=== PATIENT | female | born 1965 | race Caucasian/White ===

== ENCOUNTER 2019-01-08 21:41 | Inpatient (IN) | payer MEDICARE, MEDICAID ==
[~2019-01-08] VITALS: Ht 167.6 cm; Wt 97.7 kg
[2019-01-08] MEDS ORDERED: SPIR25 PO (22:00)
[2019-01-08] MEDS ORDERED: OXYC20 PO (22:00)
[2019-01-08] MEDS ORDERED: ESTR-95 PO (22:01)
[2019-01-08] MEDS ORDERED: DIAZ10 PO (22:01)
[2019-01-08] MEDS ORDERED: OXYB5 PO (22:01)
[2019-01-08] MEDS ORDERED: DIAZ5 PO (22:01)
[2019-01-08 22:30] LABS: GLUCOSE,POINT OF CARE 101 MG/DL (70-110)
[2019-01-08 22:56] LABS: BASOPHILS % (AUTO) 0.4 % (0.0-2.0); EOSINOPHILS % (AUTO) 1.9 % (1.0-6.0); HEMATOCRIT 39.9 % (41-53); HEMOGLOBIN 13.1 g/dL (13.5-17.5); LYMPHOCYTES # (AUTO) 1.4 K/uL (1.0-4.8); LYMPHOCYTES % (AUTO) 17.8 % (22.0-44.0); MEAN CORPUSCULAR HEMOGLOBIN 32.5 pg (26.0-34.0); MEAN CORPUSCULAR HGB CONC 32.9 G/dL (31.0-37.0); MEAN CORPUSCULAR VOLUME 99 fL (80-100); MONOCYTES # (AUTO) 0.4 K/uL (0.1-1.0); MONOCYTES % (AUTO) 5.5 % (2.0-9.0); NEUTROPHILS # (AUTO) 5.9 K/uL (1.8-7.7); NEUTROPHILS % (AUTO) 74.4 % (40.0-70.0); PLATELET COUNT (AUTO) 345 K/uL (150-450); RED BLOOD CELL COUNT(AUTO) 4.03 MIL/uL (4.50-5.90); RED CELL DISTRIBUTION WIDTH 14.7 % (11.5-14.5)
[2019-01-08 23:03] LABS: ANION GAP 9 mmol/L (8-16); CALCIUM, TOTAL 9.1 mg/dL (8.8-10.5); CARBON DIOXIDE 26 mmol/L (22-29); CHLORIDE 105 mmol/L (98-107); GLOMERULAR FILTR. RATE CALC > 60 mL/min (>60); GLUCOSE,RANDOM 101 mg/dL (70-110); POTASSIUM 3.4 mmol/L (3.5-5.1); SODIUM SERUM 140 mmol/L (136-145); UREA NITROGEN, BLOOD 9 mg/dL (7-18)
[2019-01-08 23:09] LABS: ALANINE AMINOTRANSFERASE 18 U/L (12-78); ALBUMIN 3.7 g/dL (3.4-5.0); ALKALINE PHOSPHATASE 55 U/L (46-116); ASPARTATE AMINOTRANSFERASE 14 U/L (15-37); BILIRUBIN,TOTAL 0.4 mg/dL (0.1-1.0); TOTAL PROTEIN, SERUM 6.8 g/dL (6.4-8.2)
[2019-01-08 23:27] LABS: ACETAMINOPHEN < 2 mcg/mL (10-30); SALICYLATE 3.3 mg/dL (2.8-20.0)
[2019-01-09] MEDS ORDERED: OxyCODONE HCL 10 MG IR TABLET PO ONE (00:15)
[2019-01-09] MEDS ORDERED: LORazepam 1 MG TABLET PO ONE (01:45)
[2019-01-09] MEDS ORDERED: DIAZEPAM 5 MG TABLET PO ONE (01:45)
[2019-01-09] MEDS ORDERED: LORazepam 2 MG/ML VIAL IM ONE ×2 (05:30→11:45)
[2019-01-09] MEDS ORDERED: HALOPERIDOL 5 MG TABLET PO PRN (09:30)
[2019-01-09] MEDS ORDERED: ZOLPIDEM TARTRATE 10 MG TABLET PO PRN (09:30)
[2019-01-09 11:56] VITALS: BP 125/90
[2019-01-09] MEDS: ESCITALOPRAM OXALATE 10 MG TABLET PO SCH (12:20)
[2019-01-09] MEDS: ESTRADIOL 1 MG TABLET PO SCH (14:59)
[2019-01-09] MEDS: SPIRONOLACTONE 25 MG TABLET PO SCH (14:59)
[2019-01-09] MEDS: OXYBUTYNIN CHLORIDE 5 MG TABLET PO SCH ×2 (14:59→17:09)
[2019-01-09] MEDS ORDERED: OXYBUTYNIN CHLORIDE 5 MG TABLET PO SCH (17:00)
[2019-01-09 21:35] VITALS: BP 118/76
[2019-01-09] MEDS ORDERED: ALBUTEROL SULFATE HFA 90 MCG/PUFF 8 GM INHALER IH PRN (22:15)
[2019-01-09] MEDS ORDERED: LOPERAMIDE HCL 2 MG CAPSULE PO PRN (22:15)
[2019-01-09] MEDS ORDERED: ONDANSETRON HCL 4 MG TABLET PO PRN (22:15)
[2019-01-09] MEDS ORDERED: MAG HYDROX/AL HYDROX/SIMETH ES 30 ML SUSPENSION UDCUP PO PRN (22:15)
[2019-01-09] MEDS ORDERED: PETROLATUM,WHITE 28 GM JELLY TP PRN (22:15)
[2019-01-09] MEDS ORDERED: MAGNESIUM HYDROXIDE SUSPENSION 30 ML UDCUP PO PRN (22:15)
[2019-01-09] MEDS ORDERED: DOCUSATE SODIUM 100 MG CAPSULE PO PRN (22:15)
[2019-01-09] MEDS ORDERED: GuaiFENesin/D-METHORPHAN [SUGAR-FREE] 200-20MG/10 ML SYRUP UDCUP PO PRN (22:15)
[2019-01-09] MEDS ORDERED: IBUPROFEN 400 MG TABLET PO PRN (22:15)
[2019-01-09] MEDS ORDERED: CloNIDine HCL 0.1 MG TABLET PO PRN (22:15)
[2019-01-09] MEDS ORDERED: NICOTINE 14 MG/24 HOUR PATCH TD PRN (22:15)
[2019-01-10] MEDS: LORazepam 2 MG TABLET PO PRN ×4 (00:47→18:06)
[2019-01-10] MEDS ORDERED: POTASSIUM CHLORIDE 20 MEQ ER TABLET PO ONE (06:30)
[2019-01-10] MEDS: ESCITALOPRAM OXALATE 10 MG TABLET PO SCH (08:55)
[2019-01-10] MEDS: ESTRADIOL 1 MG TABLET PO SCH (08:55)
[2019-01-10] MEDS: SPIRONOLACTONE 25 MG TABLET PO SCH (08:55)
[2019-01-10] MEDS: OXYBUTYNIN CHLORIDE 5 MG TABLET PO SCH ×2 (08:55→17:04)
[2019-01-10] MEDS ORDERED: OxyCODONE HCL 10 MG ER TABLET PO SCH (09:00)
[2019-01-10] MEDS ORDERED: SPIRONOLACTONE 25 MG TABLET PO SCH (09:00)
[2019-01-10] MEDS ORDERED: ESTRADIOL 1 MG TABLET PO SCH (09:00)
[2019-01-10] MEDS ORDERED: ESTRADIOL 1 MG TABLET PO ONE (09:45)
[2019-01-10] MEDS ORDERED: OxyCODONE HCL 10 MG ER TABLET PO ONE (17:00)
[2019-01-10] MEDS: NICOTINE 21 MG/24 HOUR PATCH TD SCH (17:04)
[2019-01-11 02:45] VITALS: BP 122/69
[2019-01-11] MEDS: SPIRONOLACTONE 25 MG TABLET PO SCH (09:54)
[2019-01-11] MEDS: ESTRADIOL 1 MG TABLET PO SCH (09:54)
[2019-01-11] MEDS: OXYBUTYNIN CHLORIDE 5 MG TABLET PO SCH ×2 (09:55→16:25)
[2019-01-11] MEDS: OxyCODONE HCL 10 MG ER TABLET PO SCH ×2 (09:56→16:24)
[2019-01-11] MEDS: ESCITALOPRAM OXALATE 10 MG TABLET PO SCH (09:57)
[2019-01-11] MEDS: NICOTINE 21 MG/24 HOUR PATCH TD SCH (09:58)
[2019-01-11] MEDS: LORazepam 2 MG TABLET PO PRN ×3 (13:39→20:01)
[2019-01-11] MEDS ORDERED: LORazepam 2 MG/ML VIAL IM ONE (16:00)
[2019-01-11 17:00] VITALS: BP 130/84
[2019-01-12] MEDS: LORazepam 2 MG TABLET PO PRN ×4 (01:37→23:02)
[2019-01-12 05:59] VITALS: BP 135/99
[2019-01-12] MEDS: ESTRADIOL 1 MG TABLET PO SCH (09:02)
[2019-01-12] MEDS: OxyCODONE HCL 10 MG ER TABLET PO SCH ×2 (09:02→16:39)
[2019-01-12] MEDS: SPIRONOLACTONE 25 MG TABLET PO SCH (09:04)
[2019-01-12] MEDS: OXYBUTYNIN CHLORIDE 5 MG TABLET PO SCH ×2 (09:05→16:38)
[2019-01-12] MEDS: ESCITALOPRAM OXALATE 10 MG TABLET PO SCH (09:05)
[2019-01-12] MEDS: NICOTINE 21 MG/24 HOUR PATCH TD SCH (09:06)
[2019-01-12] MEDS ORDERED: LORazepam 2 MG/ML VIAL IM ONE (14:55)
[2019-01-13] MEDS: LORazepam 2 MG TABLET PO PRN ×3 (07:46→19:24)
[2019-01-13] MEDS: OxyCODONE HCL 10 MG ER TABLET PO SCH ×2 (08:14→17:30)
[2019-01-13] MEDS: OXYBUTYNIN CHLORIDE 5 MG TABLET PO SCH ×2 (08:15→17:30)
[2019-01-13] MEDS: SPIRONOLACTONE 25 MG TABLET PO SCH (08:15)
[2019-01-13] MEDS: ESCITALOPRAM OXALATE 10 MG TABLET PO SCH (08:15)
[2019-01-13] MEDS: ESTRADIOL 1 MG TABLET PO SCH (08:15)
[2019-01-13] MEDS: NICOTINE 21 MG/24 HOUR PATCH TD SCH (09:00)
[2019-01-13] MEDS ORDERED: OxyCODONE HCL 10 MG ER TABLET PO ONE (19:45)
[2019-01-13 19:55] VITALS: BP 125/79
[2019-01-14] MEDS: SPIRONOLACTONE 25 MG TABLET PO SCH (10:06)
[2019-01-14] MEDS: ESTRADIOL 1 MG TABLET PO SCH (10:06)
[2019-01-14] MEDS: OxyCODONE HCL 10 MG ER TABLET PO SCH (10:07)
[2019-01-14] MEDS: ESCITALOPRAM OXALATE 10 MG TABLET PO SCH (10:07)
[2019-01-14] MEDS: OXYBUTYNIN CHLORIDE 5 MG TABLET PO SCH ×2 (10:07→16:27)
[2019-01-14] MEDS: LORazepam 2 MG TABLET PO PRN ×2 (10:10→14:10)
[2019-01-14] MEDS: NICOTINE 21 MG/24 HOUR PATCH TD SCH (11:58)
[2019-01-14] MEDS ORDERED: ESCI10TA PO (14:45)
[2019-01-14 16:26] VITALS: BP 122/60
[2019-01-14] MEDS ORDERED: OxyCODONE HCL 5 MG IR TABLET PO SCH (17:00)
== END 2019-01-14 18:30 | disposition home or self-care (01) | DRG 885 ==
LOC: EMS 21:41 → 3EX 01-09 09:54 → EDSEX 01-09 09:54
PROVIDERS: ADMIT Psychiatry & Neurology Child & Adolescent Psychiatry; ATTEND Psychiatry & Neurology Child & Adolescent Psychiatry
DX: F33.2 Major depressive disorder, recurrent severe without psychotic features (principal); R45.851 Suicidal ideations; F41.0 Panic disorder [episodic paroxysmal anxiety]; F43.10 Post-traumatic stress disorder, unspecified; F64.9 Gender identity disorder, unspecified; G89.4 Chronic pain syndrome; R32 Unspecified urinary incontinence; M19.90 Unspecified osteoarthritis, unspecified site; E87.6 Hypokalemia; D64.9 Anemia, unspecified; Z90.49 Acquired absence of other specified parts of digestive tract; Z85.038 Personal history of other malignant neoplasm of large intestine; Z88.8 Allergy status to other drugs, medicaments and biological substances; Z88.6 Allergy status to analgesic agent
CPT/HCPCS: 99406; G0378; G0480; G0481; J2060

== ENCOUNTER 2019-03-18 22:07 | Emergency (ER) | payer MEDICARE, MEDICAID ==
[~2019-03-18] VITALS: Ht 167.6 cm; Wt 88.6 kg
[~2019-03-18 22:07] MED LIST: ESCI10TA PO; ESTR-95 PO; OXYB5 PO; SPIR25 PO
[2019-03-18] MEDS ORDERED: KETOROLAC TROMETHAMINE 30 MG/ML VIAL IVP ONE (23:45)
[2019-03-19] MEDS ORDERED: KETOROLAC TROMETHAMINE 30 MG/ML VIAL IM ONE (00:30)
[2019-03-19] MEDS ORDERED: LIDOCAINE 5% TRANSDERMAL PATCH TD ONE (00:30)
[2019-03-19 01:15] LABS: BASOPHILS % (AUTO) 0.9 % (0.0-2.0); EOSINOPHILS % (AUTO) 0.4 % (1.0-6.0); HEMATOCRIT 42.4 % (36-46); HEMOGLOBIN 14.3 g/dL (12.0-16.0); LYMPHOCYTES # (AUTO) 2.3 K/uL (1.0-4.8); LYMPHOCYTES % (AUTO) 15.7 % (22.0-44.0); MEAN CORPUSCULAR HEMOGLOBIN 32.1 pg (26.0-34.0); MEAN CORPUSCULAR HGB CONC 33.7 G/dL (31.0-37.0); MEAN CORPUSCULAR VOLUME 95 fL (80-100); MONOCYTES # (AUTO) 0.8 K/uL (0.1-1.0); MONOCYTES % (AUTO) 5.5 % (2.0-9.0); NEUTROPHILS # (AUTO) 11.4 K/uL (1.8-7.7); NEUTROPHILS % (AUTO) 77.5 % (40.0-70.0); PLATELET COUNT (AUTO) 430 K/uL (150-450); RED BLOOD CELL COUNT(AUTO) 4.45 MIL/uL (4.00-5.20); RED CELL DISTRIBUTION WIDTH 14.5 % (11.5-14.5)
[2019-03-19 01:24] LABS: ANION GAP 13 mmol/L (8-16); CALCIUM, TOTAL 9.2 mg/dL (8.8-10.5); CARBON DIOXIDE 23 mmol/L (22-29); CHLORIDE 100 mmol/L (98-107); CREATININE 0.86 mg/dL (0.60-1.30); GLOMERULAR FILTR. RATE CALC > 60 mL/min (>60); GLUCOSE,RANDOM 117 mg/dL (70-110); POTASSIUM 3.3 mmol/L (3.5-5.1); SODIUM SERUM 136 mmol/L (136-145); UREA NITROGEN, BLOOD 17 mg/dL (7-18)
[2019-03-19 01:30] LABS: ALANINE AMINOTRANSFERASE 20 U/L (12-78); ALKALINE PHOSPHATASE 62 U/L (46-116); ASPARTATE AMINOTRANSFERASE 11 U/L (15-37); BILIRUBIN,TOTAL 0.6 mg/dL (0.1-1.0); CREATINE KINASE, TOTAL ONLY 48 U/L (26-192); TOTAL PROTEIN, SERUM 7.7 g/dL (6.4-8.2)
[2019-03-19 03:24] VITALS: BP 115/68
== END 2019-03-19 03:25 | disposition home or self-care (01) ==
LOC: EMS 22:08
DX: S20.211A Contusion of right front wall of thorax, initial encounter (principal); F32.9 Major depressive disorder, single episode, unspecified; Z88.6 Allergy status to analgesic agent; Z88.5 Allergy status to narcotic agent; Z88.8 Allergy status to other drugs, medicaments and biological substances; Y04.2XXA Assault by strike against or bumped into by another person, initial encounter; Y93.89 Activity, other specified; Y92.098 Other place in other non-institutional residence as the place of occurrence of the external cause; Y99.8 Other external cause status
CPT/HCPCS: 36415; 71046; 71120; 71250; 80053; 82550; 83735; 84484; 85025; 93005; 96372; 99285; J1885

== ENCOUNTER 2019-03-22 01:05 | Emergency (ER) | payer MEDICARE, MEDICAID ==
[~2019-03-22] VITALS: Ht 167.6 cm; Wt 93.0 kg
[~2019-03-22 01:05] MED LIST changes: -ESCI10TA PO; -ESTR-95 PO
[2019-03-22 02:28] LABS: GLUCOSE,POINT OF CARE 127 MG/DL (70-110)
[2019-03-22 02:49] LABS: BASOPHILS % (AUTO) 0.7 % (0.0-2.0); EOSINOPHILS % (AUTO) 0.8 % (1.0-6.0); HEMOGLOBIN 13.5 g/dL (12.0-16.0); LYMPHOCYTES # (AUTO) 2.5 K/uL (1.0-4.8); LYMPHOCYTES % (AUTO) 16.9 % (22.0-44.0); MEAN CORPUSCULAR HEMOGLOBIN 32.7 pg (26.0-34.0); MEAN CORPUSCULAR HGB CONC 34.5 G/dL (31.0-37.0); MEAN CORPUSCULAR VOLUME 95 fL (80-100); MONOCYTES # (AUTO) 0.8 K/uL (0.1-1.0); MONOCYTES % (AUTO) 5.4 % (2.0-9.0); NEUTROPHILS # (AUTO) 11.4 K/uL (1.8-7.7); NEUTROPHILS % (AUTO) 76.2 % (40.0-70.0); PLATELET COUNT (AUTO) 363 K/uL (150-450); RED BLOOD CELL COUNT(AUTO) 4.11 MIL/uL (4.00-5.20); RED CELL DISTRIBUTION WIDTH 14.4 % (11.5-14.5)
[2019-03-22 03:03] LABS: INR 1.1 (0.9-1.1); PROTHROMBIN TIME 11.1 SEC (9.4-11.6)
[2019-03-22 03:11] LABS: CARBON DIOXIDE 26 mmol/L (22-29)
[2019-03-22 03:12] LABS: ALANINE AMINOTRANSFERASE 22 U/L (12-78); ALKALINE PHOSPHATASE 59 U/L (46-116); ANION GAP 9 mmol/L (8-16); ASPARTATE AMINOTRANSFERASE 11 U/L (15-37); BILIRUBIN,TOTAL 0.4 mg/dL (0.1-1.0); CALCIUM, TOTAL 9.1 mg/dL (8.8-10.5); CHLORIDE 100 mmol/L (98-107); CREATININE 0.85 mg/dL (0.60-1.30); GLOMERULAR FILTR. RATE CALC > 60 mL/min (>60); GLUCOSE,RANDOM 106 mg/dL (70-110); POTASSIUM 3.4 mmol/L (3.5-5.1); TOTAL PROTEIN, SERUM 7.3 g/dL (6.4-8.2); UREA NITROGEN, BLOOD 14 mg/dL (7-18)
[2019-03-22 03:13] LABS: SODIUM SERUM 135 mmol/L (136-145)
[2019-03-22] MEDS ORDERED: ALTEPLASE 8.4 MG in WATER FOR INJECTION,STERILE 8.4 ML IV ONE (03:14)
[2019-03-22] MEDS ORDERED: ALTEPLASE IV ONE (03:15)
[2019-03-22] MEDS ORDERED: WATER FOR INJECTION STERILE IV ONE (03:15)
[2019-03-22] MEDS ORDERED: ALTEPLASE PER STROKE PROTOCOL CLINICAL ONE (03:15)
[2019-03-22] MEDS ORDERED: POTASSIUM CHL 20 MEQ/0.45% NS 1,000 ML IV ONE (04:45)
[2019-03-22] MEDS ORDERED: 0.9% SODIUM CHLORIDE 10 ML SYRINGE IVP PRN ×2 (04:45→08:30)
[2019-03-22] MEDS ORDERED: ONDANSETRON HCL 4 MG/2 ML VIAL IVP PRN (08:30)
[2019-03-22] MEDS ORDERED: MORPHINE SULFATE 2 MG/ML SYRINGE IVP PRN (08:45)
[2019-03-22] MEDS ORDERED: GADOBUTROL 1 MMOL/ML 10 ML VIAL IVP ONE (08:58)
[2019-03-22] MEDS ORDERED: PANTOPRAZOLE SODIUM 40 MG/VIAL IVP SCH (09:00)
[2019-03-22 10:34] LABS: BASOPHILS % (AUTO) 0.2 % (0.0-2.0); EOSINOPHILS % (AUTO) 1.8 % (1.0-6.0); HEMATOCRIT 37.5 % (36-46); HEMOGLOBIN 12.8 g/dL (12.0-16.0); LYMPHOCYTES # (AUTO) 2.5 K/uL (1.0-4.8); LYMPHOCYTES % (AUTO) 23.9 % (22.0-44.0); MEAN CORPUSCULAR HEMOGLOBIN 32.8 pg (26.0-34.0); MEAN CORPUSCULAR HGB CONC 34.1 G/dL (31.0-37.0); MEAN CORPUSCULAR VOLUME 96 fL (80-100); MONOCYTES # (AUTO) 0.7 K/uL (0.1-1.0); MONOCYTES % (AUTO) 6.3 % (2.0-9.0); NEUTROPHILS # (AUTO) 7.1 K/uL (1.8-7.7); NEUTROPHILS % (AUTO) 67.8 % (40.0-70.0); PLATELET COUNT (AUTO) 329 K/uL (150-450); RED CELL DISTRIBUTION WIDTH 14.4 % (11.5-14.5)
[2019-03-22 10:44] LABS: ANION GAP 8 mmol/L (8-16); CALCIUM, TOTAL 8.7 mg/dL (8.8-10.5); CARBON DIOXIDE 26 mmol/L (22-29); CHLORIDE 102 mmol/L (98-107); CREATININE 0.73 mg/dL (0.60-1.30); GLOMERULAR FILTR. RATE CALC > 60 mL/min (>60); GLUCOSE,RANDOM 92 mg/dL (70-110); POTASSIUM 3.4 mmol/L (3.5-5.1); SODIUM SERUM 136 mmol/L (136-145); UREA NITROGEN, BLOOD 10 mg/dL (7-18)
[2019-03-22 10:48] LABS: INR 1.1 (0.9-1.1); PROTHROMBIN TIME 11.4 SEC (9.4-11.6)
[2019-03-22 10:49] LABS: CHOLESTEROL 111 mg/dL (131-200); HDL CHOLESTEROL 22 mg/dL (40-60); LDL CHOL (CALC.) 74 mg/dL (0-130); TRIGLYCERIDES 77 mg/dL (15-150)
[2019-03-22] MEDS ORDERED: SODIUM CHLORIDE 0.9% 1,000 ML IV ONE (11:15)
[2019-03-22 11:21] LABS: HEMOGLOBIN A1C 5.5 % (4.5-6.2)
[2019-03-22] MEDS: MORPHINE SULFATE 2 MG/ML SYRINGE IVP PRN ×2 (13:16→19:27)
[2019-03-22 15:12] LABS: BASOPHILS % (AUTO) 1.1 % (0.0-2.0); EOSINOPHILS % (AUTO) 1.9 % (1.0-6.0); HEMATOCRIT 36.6 % (36-46); HEMOGLOBIN 12.5 g/dL (12.0-16.0); LYMPHOCYTES # (AUTO) 1.9 K/uL (1.0-4.8); LYMPHOCYTES % (AUTO) 21.1 % (22.0-44.0); MEAN CORPUSCULAR HEMOGLOBIN 32.7 pg (26.0-34.0); MEAN CORPUSCULAR VOLUME 96 fL (80-100); MONOCYTES # (AUTO) 0.6 K/uL (0.1-1.0); MONOCYTES % (AUTO) 6.4 % (2.0-9.0); NEUTROPHILS # (AUTO) 6.4 K/uL (1.8-7.7); NEUTROPHILS % (AUTO) 69.5 % (40.0-70.0); PLATELET COUNT (AUTO) 311 K/uL (150-450); RED BLOOD CELL COUNT(AUTO) 3.82 MIL/uL (4.00-5.20); RED CELL DISTRIBUTION WIDTH 14.5 % (11.5-14.5)
[2019-03-22 17:10] LABS: GLUCOSE,POINT OF CARE 93 MG/DL (70-110)
[2019-03-22 18:36] VITALS: BP 93/57
== END 2019-03-22 22:05 | disposition left against medical advice (07) ==
LOC: EMS 01:06
DX: I63.9 Cerebral infarction, unspecified (principal); F32.9 Major depressive disorder, single episode, unspecified; Z85.038 Personal history of other malignant neoplasm of large intestine; Z98.890 Other specified postprocedural states; Z79.899 Other long term (current) drug therapy; Z88.8 Allergy status to other drugs, medicaments and biological substances; Z88.5 Allergy status to narcotic agent; Z91.040 Latex allergy status; Z88.6 Allergy status to analgesic agent
CPT/HCPCS: 36415; 37195; 70450; 71045; 80048; 80053; 80061; 82962; 83036; 84484; 85025; 85610; 85730; 86850; 86900; 86901; 93005; 93306; 96375; 99291; J2270; J2997; J3480; 51702; 82948; A9585

== ENCOUNTER 2021-07-15 14:33 | Emergency (ER) | payer MEDICARE, MEDICAID ==
[~2021-07-15] VITALS: Ht 167.6 cm; Wt 90.9 kg
[~2021-07-15 14:33] MED LIST changes: -OXYB5 PO; +OXYB5TAB20 PO; +SPIR-37 PO; -SPIR25 PO
[2021-07-15 14:34] VITALS: BP 160/93
[2021-07-15] MEDS ORDERED: ESTR1PAT77 TD (14:38)
[2021-07-15] MEDS ORDERED: DIAZ10 PO (15:41)
[2021-07-15] MEDS ORDERED: GABA-1201 PO (15:41)
[2021-07-15] MEDS ORDERED: OXYC-490 PO (15:41)
== END 2021-07-15 16:01 | disposition home or self-care (01) ==
LOC: EMS 15:13
DX: G89.29 Other chronic pain (principal); M54.50 Low back pain, unspecified; F43.12 Post-traumatic stress disorder, chronic; Z88.8 Allergy status to other drugs, medicaments and biological substances; Z79.899 Other long term (current) drug therapy; F32.9 Major depressive disorder, single episode, unspecified; F17.210 Nicotine dependence, cigarettes, uncomplicated
CPT/HCPCS: 99283; Z7502

== ENCOUNTER 2021-08-15 14:24 | Inpatient (IN) | payer MEDICARE, MEDICAID ==
[~2021-08-15] VITALS: Ht 167.6 cm; Wt 101.0 kg
[~2021-08-15 14:24] MED LIST changes: +DIAZ10 PO; +ESTR1PAT77 TD; +GABA-1201 PO; +OXYC-490 PO; -SPIR-37 PO
[2021-08-15 15:21] LABS: GLUCOSE,POINT OF CARE 100 MG/DL (70-110)
[2021-08-15] MEDS ORDERED: SODIUM CHLORIDE 0.9% 1,000 ML IV ONE ×2 (15:30→17:00)
[2021-08-15 15:51] LABS: COVID AG,FIA SOURCE NASOPHARYNGEAL
[2021-08-15 15:56] LABS: BASOPHILS % (AUTO) 0.1 % (0.0-2.0); EOSINOPHILS % (AUTO) 0 % (1.0-6.0); HEMATOCRIT 39.6 % (36-46); HEMOGLOBIN 13.5 g/dL (12.0-16.0); LYMPHOCYTES # (AUTO) 1.1 K/uL (1.0-4.8); MEAN CORPUSCULAR HEMOGLOBIN 31.4 pg (26.0-34.0); MEAN CORPUSCULAR HGB CONC 34.1 G/dL (31.0-37.0); MEAN CORPUSCULAR VOLUME 92 fL (80-100); MONOCYTES # (AUTO) 0.7 K/uL (0.1-1.0); NEUTROPHILS # (AUTO) 15.8 K/uL (1.8-7.7); RED CELL DISTRIBUTION WIDTH 15.6 % (11.5-14.5)
[2021-08-15 16:02] LABS: NEUTROPHILS % (AUTO) 89.9 % (40.0-70.0)
[2021-08-15 16:03] LABS: ANION GAP 13 mmol/L (8-16); CALCIUM, TOTAL 9.5 mg/dL (8.8-10.5); CARBON DIOXIDE 26 mmol/L (22-29); CHLORIDE 92 mmol/L (98-107); CREATININE 1.03 mg/dL (0.60-1.30); GLOMERULAR FILTR. RATE CALC 55 mL/min (>60); GLUCOSE,RANDOM 115 mg/dL (70-110); POTASSIUM 3.7 mmol/L (3.5-5.1); SODIUM SERUM 131 mmol/L (136-145); UREA NITROGEN, BLOOD 24 mg/dL (7-18)
[2021-08-15 16:08] LABS: AMMONIA 13 umol/L (11-32)
[2021-08-15 16:12] LABS: PLATELET COUNT (AUTO) 426 K/uL (150-450)
[2021-08-15 16:19] LABS: ALANINE AMINOTRANSFERASE 92 U/L (12-78); ALBUMIN 3.5 g/dL (3.4-5.0); ALKALINE PHOSPHATASE 98 U/L (46-116); ASPARTATE AMINOTRANSFERASE 148 U/L (15-37); BILIRUBIN,TOTAL 0.6 mg/dL (0.1-1.0); HCG,QUANTITATIVE < 1 mIU/mL (0-6); PHOSPHORUS 3.7 mg/dL (2.5-4.9); TOTAL PROTEIN, SERUM 8.6 g/dL (6.4-8.2)
[2021-08-15 16:27] LABS: LACTIC ACID 1.8 mmol/L (0.4-2.0)
[2021-08-15 16:55] LABS: CREATINE KINASE, TOTAL ONLY 7458 U/L (26-192)
[2021-08-15] MEDS ORDERED: ZOLPIDEM TARTRATE 5 MG TABLET PO PRN (18:15)
[2021-08-15] MEDS ORDERED: ONDANSETRON HCL 4 MG/2 ML VIAL IVP PRN (18:15)
[2021-08-15] MEDS ORDERED: OxyCODONE HCL/ACETAMINOPHEN 5-325 MG TABLET PO PRN (18:15)
[2021-08-15 21:30] VITALS: BP 114/55
[2021-08-15] MEDS: DOCUSATE SODIUM 100 MG CAPSULE PO SCH (21:32)
[2021-08-15] MEDS: OxyCODONE HCL/ACETAMINOPHEN 5-325 MG TABLET PO PRN (21:32)
[2021-08-16] MEDS: HEPARIN SODIUM,PORCINE 5,000 UNITS/ML VIAL SQ SCH ×4 (01:05→23:24)
[2021-08-16] MEDS: SODIUM CHLORIDE 0.9% 1,000 ML IV SCH ×2 (02:56→15:47)
[2021-08-16] MEDS: OxyCODONE HCL/ACETAMINOPHEN 5-325 MG TABLET PO PRN ×3 (04:26→16:42)
[2021-08-16 04:31] VITALS: BP 138/58
[2021-08-16 06:11] LABS: BASOPHILS % (AUTO) 0.1 % (0.0-2.0); EOSINOPHILS % (AUTO) 0.1 % (1.0-6.0); HEMATOCRIT 33.1 % (36-46); LYMPHOCYTES # (AUTO) 0.9 K/uL (1.0-4.8); LYMPHOCYTES % (AUTO) 7.5 % (22.0-44.0); MEAN CORPUSCULAR HEMOGLOBIN 30.8 pg (26.0-34.0); MEAN CORPUSCULAR HGB CONC 33.2 G/dL (31.0-37.0); MEAN CORPUSCULAR VOLUME 93 fL (80-100); MONOCYTES # (AUTO) 0.6 K/uL (0.1-1.0); NEUTROPHILS # (AUTO) 10.8 K/uL (1.8-7.7); PLATELET COUNT (AUTO) 349 K/uL (150-450); RED BLOOD CELL COUNT(AUTO) 3.56 MIL/uL (4.00-5.20); RED CELL DISTRIBUTION WIDTH 15.8 % (11.5-14.5)
[2021-08-16 06:35] LABS: AMPHET/METH SCREEN,URINE NEGATIVE (NEGATIVE); BARBITURATE SCREEN, URINE NEGATIVE (NEGATIVE); BENZODIAZEPINES SCREEN,URINE POSITIVE (NEGATIVE); CANNABINOID SCREEN,URINE NEGATIVE (NEGATIVE); COCAINE SCREEN,URINE NEGATIVE (NEGATIVE); METHADONE SCREEN, URINE NEGATIVE (NEGATIVE); OPIATE SCREEN,URINE POSITIVE (NEGATIVE)
[2021-08-16 06:38] LABS: PHENCYCLIDINE SCREEN,URINE NEGATIVE (NEGATIVE)
[2021-08-16 06:43] LABS: APPEARANCE,URINE CLEAR (CLEAR); BILIRUBIN,URINE NEGATIVE (NEGATIVE); GLUCOSE, URINE (UA) NEGATIVE (NEGATIVE); KETONES,URINE NEGATIVE (NEGATIVE); LEUKOCYTE ESTERASE ,URINE NEGATIVE (NEGATIVE); NITRATE,URINE NEGATIVE (NEGATIVE); PH,URINE 5.5 (5.0-8.0); PROTEIN,URINE 30-70 mg/dL (NEGATIVE); SPECIFIC GRAVITIY, URINE 1.024 (1.003-1.030); UROBILINOGEN,URINE <=1.0 mg/dL (<=1.0)
[2021-08-16 07:05] LABS: OCCULT BLOOD,URINE SMALL (NEGATIVE)
[2021-08-16 07:06] LABS: BACTERIA,URINE None Seen /HPF (None Seen); WBC,URINE None Seen /HPF (0-5)
[2021-08-16 07:18] LABS: NEUTROPHILS % (AUTO) 87.3 % (40.0-70.0)
[2021-08-16 07:26] VITALS: BP 145/74
[2021-08-16] MEDS: FAMOTIDINE 20 MG TABLET PO SCH (09:00)
[2021-08-16] MEDS: DOCUSATE SODIUM 100 MG CAPSULE PO SCH ×2 (10:49→20:59)
[2021-08-16 15:42] VITALS: BP 117/63
[2021-08-16 19:40] VITALS: BP 117/69
[2021-08-16] MEDS: OxyCODONE HCL/ACETAMINOPHEN 10-325 MG TABLET PO PRN (19:48)
[2021-08-16] MEDS: DIAZEPAM 5 MG TABLET PO PRN (20:43)
[2021-08-16] MEDS ORDERED: MORPHINE SULFATE 2 MG/ML SYRINGE IVP ONE (22:30)
[2021-08-17] MEDS: OxyCODONE HCL/ACETAMINOPHEN 10-325 MG TABLET PO PRN ×5 (01:18→20:06)
[2021-08-17 04:35] VITALS: BP 137/76
[2021-08-17] MEDS: HEPARIN SODIUM,PORCINE 5,000 UNITS/ML VIAL SQ SCH ×2 (08:00→15:58)
[2021-08-17] MEDS: SODIUM CHLORIDE 0.9% 1,000 ML IV SCH ×2 (08:38→20:07)
[2021-08-17] MEDS: DOCUSATE SODIUM 100 MG CAPSULE PO SCH ×2 (09:00→20:46)
[2021-08-17] MEDS: FAMOTIDINE 20 MG TABLET PO SCH (09:00)
[2021-08-17] MEDS: DIAZEPAM 5 MG TABLET PO PRN ×2 (09:36→21:04)
[2021-08-17] MEDS ORDERED: QUEtiapine FUMARATE 25 MG TABLET PO PRN (10:45)
[2021-08-17 16:06] VITALS: BP 159/87
[2021-08-17 19:40] VITALS: BP 124/82
[2021-08-18] MEDS: OxyCODONE HCL/ACETAMINOPHEN 10-325 MG TABLET PO PRN ×5 (02:12→20:22)
[2021-08-18 04:40] VITALS: BP 113/60
[2021-08-18] MEDS: SODIUM CHLORIDE 0.9% 1,000 ML IV SCH ×3 (06:23→23:15)
[2021-08-18] MEDS: DIAZEPAM 5 MG TABLET PO PRN ×3 (07:44→20:28)
[2021-08-18] MEDS: HEPARIN SODIUM,PORCINE 5,000 UNITS/ML VIAL SQ SCH ×4 (08:00→23:00)
[2021-08-18 08:02] VITALS: BP 101/67
[2021-08-18] MEDS: FAMOTIDINE 20 MG TABLET PO SCH (09:00)
[2021-08-18] MEDS: DOCUSATE SODIUM 100 MG CAPSULE PO SCH ×3 (09:00→20:25)
[2021-08-18] MEDS: ESTRADIOL 1 MG TABLET PO SCH (09:49)
[2021-08-18 16:14] LABS: BASOPHILS % (AUTO) 0.4 % (0.0-2.0); EOSINOPHILS % (AUTO) 0.7 % (1.0-6.0); HEMATOCRIT 33.1 % (36-46); HEMOGLOBIN 11.2 g/dL (12.0-16.0); LYMPHOCYTES # (AUTO) 1.3 K/uL (1.0-4.8); LYMPHOCYTES % (AUTO) 12.9 % (22.0-44.0); MEAN CORPUSCULAR HEMOGLOBIN 31.3 pg (26.0-34.0); MEAN CORPUSCULAR HGB CONC 33.7 G/dL (31.0-37.0); MEAN CORPUSCULAR VOLUME 93 fL (80-100); MONOCYTES # (AUTO) 0.5 K/uL (0.1-1.0); MONOCYTES % (AUTO) 4.9 % (2.0-9.0); NEUTROPHILS % (AUTO) 81.1 % (40.0-70.0); PLATELET COUNT (AUTO) 331 K/uL (150-450); RED BLOOD CELL COUNT(AUTO) 3.57 MIL/uL (4.00-5.20)
[2021-08-18 16:22] VITALS: BP 93/61
[2021-08-18 17:25] LABS: CALCIUM, TOTAL 8.2 mg/dL (8.8-10.5); CARBON DIOXIDE 27 mmol/L (22-29); CREATININE 0.73 mg/dL (0.60-1.30); GLOMERULAR FILTR. RATE CALC > 60 mL/min (>60); GLUCOSE,RANDOM 111 mg/dL (70-110); UREA NITROGEN, BLOOD 10 mg/dL (7-18)
[2021-08-18 18:04] LABS: ALANINE AMINOTRANSFERASE 101 U/L (12-78); ALBUMIN 2.4 g/dL (3.4-5.0); ALKALINE PHOSPHATASE 61 U/L (46-116); ASPARTATE AMINOTRANSFERASE 84 U/L (15-37); BILIRUBIN,TOTAL 0.4 mg/dL (0.1-1.0); TOTAL PROTEIN, SERUM 6.8 g/dL (6.4-8.2)
[2021-08-18 18:05] LABS: CREATINE KINASE, TOTAL ONLY 1128 U/L (26-192)
[2021-08-18 19:05] LABS: FREE T4 (FREE THYROXINE) 0.95 ng/dL (0.76-1.46)
[2021-08-18 19:41] LABS: ANION GAP 7 mmol/L (8-16); CHLORIDE 99 mmol/L (98-107); POTASSIUM 3.9 mmol/L (3.5-5.1); SODIUM SERUM 133 mmol/L (136-145)
[2021-08-18 19:55] VITALS: BP 102/57
[2021-08-18] MEDS: ETHYL ALCOHOL 62% ANTISEPTIC NASAL SANITIZER 0.6 ML AMPUL NASAL SCH (22:59)
[2021-08-18 23:38] VITALS: BP 118/71
[2021-08-19] MEDS: SODIUM CHLORIDE 0.9% 1,000 ML IV SCH ×3 (00:15→20:42)
[2021-08-19] MEDS ORDERED: VANCOMYCIN HCL 1.5 GM in DEXTROSE 5%-WATER 250 ML IV ONE (01:00)
[2021-08-19] MEDS: PIPERACILLIN/TAZO 3.375 GM/D5W 50 ML IV SCH ×3 (02:00→20:42)
[2021-08-19] MEDS: OxyCODONE HCL/ACETAMINOPHEN 10-325 MG TABLET PO PRN ×3 (02:37→17:33)
[2021-08-19 02:56] VITALS: BP 112/77
[2021-08-19 06:18] LABS: APPEARANCE,URINE CLEAR (CLEAR); BILIRUBIN,URINE NEGATIVE (NEGATIVE); GLUCOSE, URINE (UA) NEGATIVE (NEGATIVE); KETONES,URINE NEGATIVE (NEGATIVE); LEUKOCYTE ESTERASE ,URINE NEGATIVE (NEGATIVE); NITRATE,URINE NEGATIVE (NEGATIVE); OCCULT BLOOD,URINE NEGATIVE (NEGATIVE); PH,URINE 7.5 (5.0-8.0); PROTEIN,URINE NEGATIVE (NEGATIVE); SPECIFIC GRAVITIY, URINE 1.012 (1.003-1.030)
[2021-08-19] MEDS: HEPARIN SODIUM,PORCINE 5,000 UNITS/ML VIAL SQ SCH ×2 (08:00→16:00)
[2021-08-19 08:18] VITALS: BP 94/65
[2021-08-19] MEDS: FAMOTIDINE 20 MG TABLET PO SCH (09:00)
[2021-08-19] MEDS: DOCUSATE SODIUM 100 MG CAPSULE PO SCH ×2 (09:00→20:42)
[2021-08-19] MEDS: ETHYL ALCOHOL 62% ANTISEPTIC NASAL SANITIZER 0.6 ML AMPUL NASAL SCH ×2 (09:00→20:43)
[2021-08-19] MEDS: DIAZEPAM 5 MG TABLET PO PRN ×2 (09:43→20:42)
[2021-08-19] MEDS: ESTRADIOL 1 MG TABLET PO SCH ×2 (09:43→10:15)
[2021-08-19] MEDS ORDERED: SODIUM CHLORIDE 0.9% 250 ML IV ONE (11:56)
[2021-08-19 12:00] VITALS: BP 105/64
[2021-08-19] MEDS ORDERED: ESTR2TAB6 PO (12:02)
[2021-08-19] MEDS: VANCOMYCIN 1GM/WATER(PEG/NADA) 200 ML IV SCH ×2 (13:44→17:34)
[2021-08-19 16:13] VITALS: BP 130/55
[2021-08-19 16:27] LABS: ANION GAP 10 mmol/L (8-16); C-REACTIVE PROTEIN QUANT 15.52 mg/dL (0.00-0.30); CALCIUM, TOTAL 8.9 mg/dL (8.8-10.5); CARBON DIOXIDE 22 mmol/L (22-29); CHLORIDE 97 mmol/L (98-107); CREATINE KINASE, TOTAL ONLY 523 U/L (26-192); CREATININE 0.74 mg/dL (0.60-1.30); GLOMERULAR FILTR. RATE CALC > 60 mL/min (>60); GLUCOSE,RANDOM 96 mg/dL (70-110); SODIUM SERUM 129 mmol/L (136-145); UREA NITROGEN, BLOOD 10 mg/dL (7-18)
[2021-08-19] MEDS: CLINDAMYCIN HCL 150 MG CAPSULE PO SCH ×2 (17:33→20:43)
[2021-08-19 19:35] VITALS: BP 109/72
[2021-08-20] MEDS: VANCOMYCIN 1GM/WATER(PEG/NADA) 200 ML IV SCH ×3 (00:30→16:00)
[2021-08-20] MEDS: PIPERACILLIN/TAZO 3.375 GM/D5W 50 ML IV SCH ×4 (00:31→18:00)
[2021-08-20] MEDS: HEPARIN SODIUM,PORCINE 5,000 UNITS/ML VIAL SQ SCH ×3 (00:31→17:22)
[2021-08-20 04:40] VITALS: BP 114/69
[2021-08-20] MEDS: OxyCODONE HCL/ACETAMINOPHEN 10-325 MG TABLET PO PRN ×3 (05:30→20:07)
[2021-08-20] MEDS: DIAZEPAM 5 MG TABLET PO PRN ×2 (06:31→13:48)
[2021-08-20] MEDS: CLINDAMYCIN HCL 150 MG CAPSULE PO SCH ×3 (08:07→20:07)
[2021-08-20] MEDS: ESTRADIOL 1 MG TABLET PO SCH (08:07)
[2021-08-20] MEDS: DOCUSATE SODIUM 100 MG CAPSULE PO SCH ×2 (08:07→20:07)
[2021-08-20] MEDS: ETHYL ALCOHOL 62% ANTISEPTIC NASAL SANITIZER 0.6 ML AMPUL NASAL SCH ×2 (08:07→20:07)
[2021-08-20] MEDS: FAMOTIDINE 20 MG TABLET PO SCH (08:07)
[2021-08-20] MEDS: SODIUM CHLORIDE 0.9% 1,000 ML IV SCH ×2 (08:08→16:15)
[2021-08-20] MEDS ORDERED: GADOTERATE MEGLUMINE 10 MMOL/20 ML VIAL IVP ONE (08:16)
[2021-08-20 08:26] VITALS: BP 127/85
[2021-08-20] MEDS ORDERED: LORazepam 2 MG/ML VIAL IM ONE (09:30)
[2021-08-20 16:53] VITALS: BP 120/74
[2021-08-20 20:17] VITALS: BP 121/72
[2021-08-20 21:16] LABS: HEMATOCRIT 34.7 % (36-46); HEMOGLOBIN 11.5 g/dL (12.0-16.0); MEAN CORPUSCULAR HEMOGLOBIN 31.2 pg (26.0-34.0); MEAN CORPUSCULAR HGB CONC 33.1 G/dL (31.0-37.0); MEAN CORPUSCULAR VOLUME 94 fL (80-100); PLATELET COUNT (AUTO) 282 K/uL (150-450); RED BLOOD CELL COUNT(AUTO) 3.67 MIL/uL (4.00-5.20); RED CELL DISTRIBUTION WIDTH 15.9 % (11.5-14.5)
[2021-08-20 21:21] LABS: ANION GAP 10 mmol/L (8-16); CALCIUM, TOTAL 8.8 mg/dL (8.8-10.5); CARBON DIOXIDE 25 mmol/L (22-29); CHLORIDE 99 mmol/L (98-107); GLOMERULAR FILTR. RATE CALC > 60 mL/min (>60); GLUCOSE,RANDOM 109 mg/dL (70-110); POTASSIUM 4.1 mmol/L (3.5-5.1); SODIUM SERUM 134 mmol/L (136-145); UREA NITROGEN, BLOOD 16 mg/dL (7-18)
[2021-08-20 21:56] LABS: BAND NEUTROPHILS % (MANUAL) 0 % (0-5)
[2021-08-20 21:57] LABS: LYMPHOCYTES % (MANUAL) 5 % (22-44); MONOCYTES % (MANUAL) 3 % (2-9); PLATELET MORPHOLOGY COMMENT LARGE PLTS PRESENT; SEGMENTED NEUTROPHILS % 92 % (40-70)
[2021-08-21] MEDS: HEPARIN SODIUM,PORCINE 5,000 UNITS/ML VIAL SQ SCH ×4 (00:05→23:01)
[2021-08-21] MEDS: OxyCODONE HCL/ACETAMINOPHEN 10-325 MG TABLET PO PRN ×4 (00:05→21:56)
[2021-08-21] MEDS: DIAZEPAM 5 MG TABLET PO PRN ×3 (00:12→21:56)
[2021-08-21 04:59] VITALS: BP 116/88
[2021-08-21 07:40] VITALS: BP 97/56
[2021-08-21] MEDS: SODIUM CHLORIDE 0.9% 1,000 ML IV SCH ×2 (08:15→16:15)
[2021-08-21] MEDS: DOCUSATE SODIUM 100 MG CAPSULE PO SCH ×2 (09:00→21:00)
[2021-08-21] MEDS: LINEZOLID 600 MG TABLET PO SCH ×2 (10:00→21:56)
[2021-08-21 10:54] LABS: BASOPHILS % (AUTO) 0.7 % (0.0-2.0); EOSINOPHILS % (AUTO) 1.5 % (1.0-6.0); HEMOGLOBIN 11.3 g/dL (12.0-16.0); LYMPHOCYTES # (AUTO) 0.9 K/uL (1.0-4.8); LYMPHOCYTES % (AUTO) 14.3 % (22.0-44.0); MEAN CORPUSCULAR HEMOGLOBIN 31.5 pg (26.0-34.0); MEAN CORPUSCULAR HGB CONC 34.2 G/dL (31.0-37.0); MEAN CORPUSCULAR VOLUME 92 fL (80-100); MONOCYTES # (AUTO) 0.5 K/uL (0.1-1.0); MONOCYTES % (AUTO) 7.6 % (2.0-9.0); NEUTROPHILS # (AUTO) 4.9 K/uL (1.8-7.7); NEUTROPHILS % (AUTO) 75.9 % (40.0-70.0); PLATELET COUNT (AUTO) 289 K/uL (150-450); RED BLOOD CELL COUNT(AUTO) 3.59 MIL/uL (4.00-5.20); RED CELL DISTRIBUTION WIDTH 15.6 % (11.5-14.5)
[2021-08-21 11:06] LABS: CALCIUM, TOTAL 8.7 mg/dL (8.8-10.5); CARBON DIOXIDE 27 mmol/L (22-29); CHLORIDE 101 mmol/L (98-107); CREATININE 0.64 mg/dL (0.60-1.30); GLOMERULAR FILTR. RATE CALC > 60 mL/min (>60); GLUCOSE,RANDOM 97 mg/dL (70-110); UREA NITROGEN, BLOOD 17 mg/dL (7-18)
[2021-08-21 11:13] LABS: ANION GAP 7 mmol/L (8-16); POTASSIUM 3.7 mmol/L (3.5-5.1); SODIUM SERUM 134 mmol/L (136-145)
[2021-08-21] MEDS: ETHYL ALCOHOL 62% ANTISEPTIC NASAL SANITIZER 0.6 ML AMPUL NASAL SCH ×2 (12:14→21:56)
[2021-08-21] MEDS ORDERED: LORazepam 2 MG/ML VIAL IVP ONE ×2 (12:15→16:00)
[2021-08-21] MEDS: ESTRADIOL 1 MG TABLET PO SCH (12:16)
[2021-08-21] MEDS: FAMOTIDINE 20 MG TABLET PO SCH (12:17)
[2021-08-21 16:05] VITALS: BP 145/75
[2021-08-21 22:02] VITALS: BP 107/72
[2021-08-22] MEDS: SODIUM CHLORIDE 0.9% 1,000 ML IV SCH ×4 (00:15→23:26)
[2021-08-22] MEDS: OxyCODONE HCL/ACETAMINOPHEN 10-325 MG TABLET PO PRN ×4 (03:00→23:27)
[2021-08-22 03:17] VITALS: BP 120/86
[2021-08-22] MEDS: HEPARIN SODIUM,PORCINE 5,000 UNITS/ML VIAL SQ SCH ×3 (08:00→23:26)
[2021-08-22 08:15] VITALS: BP 97/62
[2021-08-22] MEDS: DOCUSATE SODIUM 100 MG CAPSULE PO SCH ×2 (08:17→21:00)
[2021-08-22] MEDS: ETHYL ALCOHOL 62% ANTISEPTIC NASAL SANITIZER 0.6 ML AMPUL NASAL SCH ×2 (08:17→21:10)
[2021-08-22] MEDS: FAMOTIDINE 20 MG TABLET PO SCH (08:18)
[2021-08-22] MEDS: ESTRADIOL 1 MG TABLET PO SCH (08:18)
[2021-08-22] MEDS: LINEZOLID 600 MG TABLET PO SCH (08:18)
[2021-08-22] MEDS ORDERED: MIDAZOLAM HCL 2 MG/2 ML VIAL ONE (10:28)
[2021-08-22] MEDS ORDERED: FentaNYL CITRATE PF 100 MCG/2 ML VIAL ONE (10:28)
[2021-08-22] MEDS ORDERED: NALOXONE HCL 0.4 MG/ML VIAL ONE (10:29)
[2021-08-22] MEDS ORDERED: FLUMAZENIL 0.1 MG/ML 5 ML VIAL IVP ONE (10:29)
[2021-08-22] MEDS ORDERED: LORazepam 2 MG/ML VIAL IVP ONE (11:15)
[2021-08-22] MEDS ORDERED: LIDOCAINE/PF 1% 30 ML VIAL ONE (11:19)
[2021-08-22] MEDS ORDERED: HEPARIN SODIUM 1000 UNITS/NS 500 ML ONE (11:27)
[2021-08-22] MEDS ORDERED: HEPARIN SODIUM,PORCINE 1,000 UNITS/ML 10 ML VIAL ONE (11:42)
[2021-08-22] MEDS: DIAZEPAM 5 MG TABLET PO PRN (13:52)
[2021-08-22 15:31] LABS: BASOPHILS % (AUTO) 1.1 % (0.0-2.0); EOSINOPHILS % (AUTO) 0.4 % (1.0-6.0); HEMATOCRIT 31.5 % (36-46); HEMOGLOBIN 10.8 g/dL (12.0-16.0); LYMPHOCYTES # (AUTO) 0.9 K/uL (1.0-4.8); LYMPHOCYTES % (AUTO) 9.6 % (22.0-44.0); MEAN CORPUSCULAR HEMOGLOBIN 31.6 pg (26.0-34.0); MEAN CORPUSCULAR HGB CONC 34.4 G/dL (31.0-37.0); MEAN CORPUSCULAR VOLUME 92 fL (80-100); MONOCYTES # (AUTO) 0.5 K/uL (0.1-1.0); MONOCYTES % (AUTO) 5.9 % (2.0-9.0); NEUTROPHILS # (AUTO) 7.4 K/uL (1.8-7.7); PLATELET COUNT (AUTO) 283 K/uL (150-450); RED BLOOD CELL COUNT(AUTO) 3.43 MIL/uL (4.00-5.20); RED CELL DISTRIBUTION WIDTH 15.5 % (11.5-14.5)
[2021-08-22 15:41] LABS: ANION GAP 8 mmol/L (8-16); CALCIUM, TOTAL 8.4 mg/dL (8.8-10.5); CARBON DIOXIDE 27 mmol/L (22-29); CHLORIDE 100 mmol/L (98-107); GLOMERULAR FILTR. RATE CALC > 60 mL/min (>60); GLUCOSE,RANDOM 98 mg/dL (70-110); POTASSIUM 3.8 mmol/L (3.5-5.1); SODIUM SERUM 135 mmol/L (136-145); UREA NITROGEN, BLOOD 11 mg/dL (7-18)
[2021-08-22 15:43] LABS: INR 1.3 (0.9-1.1); PROTHROMBIN TIME 13.3 SEC (9.4-11.6)
[2021-08-22 16:00] VITALS: BP 98/58
[2021-08-22] MEDS: VANCOMYCIN 1GM/WATER(PEG/NADA) 200 ML IV SCH ×2 (16:42→23:26)
[2021-08-22 20:22] VITALS: BP 127/61
[2021-08-23] MEDS: OxyCODONE HCL/ACETAMINOPHEN 10-325 MG TABLET PO PRN ×4 (03:35→23:28)
[2021-08-23 04:09] VITALS: BP 104/64
[2021-08-23] MEDS: DIAZEPAM 5 MG TABLET PO PRN ×2 (04:52→23:28)
[2021-08-23] MEDS ORDERED: MORPHINE SULFATE 2 MG/ML SYRINGE IVP ONE (05:30)
[2021-08-23] MEDS: ESTRADIOL 1 MG TABLET PO SCH (07:56)
[2021-08-23] MEDS: HEPARIN SODIUM,PORCINE 5,000 UNITS/ML VIAL SQ SCH ×3 (08:00→23:01)
[2021-08-23] MEDS: VANCOMYCIN 1GM/WATER(PEG/NADA) 200 ML IV SCH ×3 (08:00→22:58)
[2021-08-23] MEDS: DOCUSATE SODIUM 100 MG CAPSULE PO SCH ×2 (08:02→20:33)
[2021-08-23] MEDS: ETHYL ALCOHOL 62% ANTISEPTIC NASAL SANITIZER 0.6 ML AMPUL NASAL SCH ×2 (08:02→20:33)
[2021-08-23] MEDS: FAMOTIDINE 20 MG TABLET PO SCH (08:05)
[2021-08-23] MEDS: SODIUM CHLORIDE 0.9% 1,000 ML IV SCH (08:30)
[2021-08-23 13:08] LABS: BASOPHILS % (AUTO) 0.6 % (0.0-2.0); EOSINOPHILS % (AUTO) 0.1 % (1.0-6.0); HEMATOCRIT 33.4 % (36-46); HEMOGLOBIN 11.4 g/dL (12.0-16.0); LYMPHOCYTES # (AUTO) 0.7 K/uL (1.0-4.8); MEAN CORPUSCULAR HEMOGLOBIN 31.4 pg (26.0-34.0); MEAN CORPUSCULAR HGB CONC 34.1 G/dL (31.0-37.0); MEAN CORPUSCULAR VOLUME 92 fL (80-100); MONOCYTES # (AUTO) 0.5 K/uL (0.1-1.0); MONOCYTES % (AUTO) 4.7 % (2.0-9.0); NEUTROPHILS # (AUTO) 9.2 K/uL (1.8-7.7); PLATELET COUNT (AUTO) 275 K/uL (150-450); RED BLOOD CELL COUNT(AUTO) 3.63 MIL/uL (4.00-5.20); RED CELL DISTRIBUTION WIDTH 15.7 % (11.5-14.5)
[2021-08-23 13:11] LABS: NEUTROPHILS % (AUTO) 87.6 % (40.0-70.0)
[2021-08-23 13:12] LABS: ANION GAP 8 mmol/L (8-16); CALCIUM, TOTAL 8.3 mg/dL (8.8-10.5); CARBON DIOXIDE 27 mmol/L (22-29); CHLORIDE 98 mmol/L (98-107); CREATININE 0.59 mg/dL (0.60-1.30); GLUCOSE,RANDOM 120 mg/dL (70-110); POTASSIUM 3.7 mmol/L (3.5-5.1); SODIUM SERUM 133 mmol/L (136-145); UREA NITROGEN, BLOOD 6 mg/dL (7-18)
[2021-08-23 13:13] LABS: GLOMERULAR FILTR. RATE CALC > 60 mL/min (>60)
[2021-08-23 16:03] VITALS: BP 109/65
[2021-08-23 19:48] VITALS: BP 109/86
[2021-08-24 04:17] VITALS: BP 102/78
[2021-08-24] MEDS: OxyCODONE HCL/ACETAMINOPHEN 10-325 MG TABLET PO PRN ×5 (04:17→20:14)
[2021-08-24 06:09] VITALS: BP 116/68
[2021-08-24] MEDS: DIAZEPAM 5 MG TABLET PO PRN ×3 (06:42→20:13)
[2021-08-24 07:44] LABS: ANION GAP 11 mmol/L (8-16); CALCIUM, TOTAL 7.1 mg/dL (8.8-10.5); CARBON DIOXIDE 24 mmol/L (22-29); CHLORIDE 106 mmol/L (98-107); CREATININE 0.45 mg/dL (0.60-1.30); GLOMERULAR FILTR. RATE CALC > 60 mL/min (>60); GLUCOSE,RANDOM 120 mg/dL (70-110); SODIUM SERUM 141 mmol/L (136-145); UREA NITROGEN, BLOOD 8 mg/dL (7-18); VANCOMYCIN,RANDOM 9.5 mcg/mL (25.0-50.0)
[2021-08-24 07:46] LABS: POTASSIUM 2.6 mmol/L (3.5-5.1)
[2021-08-24] MEDS ORDERED: POTASSIUM CHLORIDE 20 MEQ ER TABLET PO PRN (08:00)
[2021-08-24 08:05] VITALS: BP 111/66
[2021-08-24] MEDS: DOCUSATE SODIUM 100 MG CAPSULE PO SCH ×2 (08:07→21:00)
[2021-08-24] MEDS ORDERED: SODIUM CHLORIDE 0.9% 0 ML IV ONE (08:09)
[2021-08-24] MEDS: POTASSIUM CHL 10 MEQ/WATER 50 ML IV PRN ×4 (08:12→14:11)
[2021-08-24] MEDS: MULTIVITAMINS WITH MINERALS, THERAPEUTIC TABLET PO SCH ×2 (08:14→09:00)
[2021-08-24] MEDS: FAMOTIDINE 20 MG TABLET PO SCH (08:14)
[2021-08-24] MEDS: ETHYL ALCOHOL 62% ANTISEPTIC NASAL SANITIZER 0.6 ML AMPUL NASAL SCH ×2 (08:14→21:00)
[2021-08-24] MEDS: HEPARIN SODIUM,PORCINE 5,000 UNITS/ML VIAL SQ SCH ×2 (08:14→15:16)
[2021-08-24] MEDS: ESTRADIOL 1 MG TABLET PO SCH (08:18)
[2021-08-24] MEDS: VANCOMYCIN 1GM/WATER(PEG/NADA) 200 ML IV SCH (09:12)
[2021-08-24 15:13] VITALS: BP 116/68
[2021-08-24] MEDS: VANCOMYCIN HCL 1.25 GM in DEXTROSE 5%-WATER 250 ML IV SCH (15:17)
[2021-08-24 19:52] VITALS: BP 119/72
[2021-08-25] MEDS: OxyCODONE HCL/ACETAMINOPHEN 10-325 MG TABLET PO PRN ×4 (00:01→14:02)
[2021-08-25 04:09] VITALS: BP 96/62
[2021-08-25 07:08] LABS: ANION GAP 9 mmol/L (8-16); CALCIUM, TOTAL 8.6 mg/dL (8.8-10.5); CARBON DIOXIDE 27 mmol/L (22-29); CHLORIDE 102 mmol/L (98-107); CREATININE 0.55 mg/dL (0.60-1.30); GLUCOSE,RANDOM 96 mg/dL (70-110); POTASSIUM 3.7 mmol/L (3.5-5.1); SODIUM SERUM 138 mmol/L (136-145); UREA NITROGEN, BLOOD 9 mg/dL (7-18)
[2021-08-25 07:12] LABS: GLOMERULAR FILTR. RATE CALC > 60 mL/min (>60)
[2021-08-25] MEDS: HEPARIN SODIUM,PORCINE 5,000 UNITS/ML VIAL SQ SCH ×3 (08:00→16:00)
[2021-08-25] MEDS: DIAZEPAM 5 MG TABLET PO PRN ×2 (08:00)
[2021-08-25] MEDS: VANCOMYCIN HCL 1.25 GM in DEXTROSE 5%-WATER 250 ML IV SCH ×4 (08:01→18:10)
[2021-08-25] MEDS: MULTIVITAMINS WITH MINERALS, THERAPEUTIC TABLET PO SCH (08:06)
[2021-08-25] MEDS: DOCUSATE SODIUM 100 MG CAPSULE PO SCH ×2 (08:06→21:00)
[2021-08-25] MEDS: FAMOTIDINE 20 MG TABLET PO SCH (08:06)
[2021-08-25 08:08] VITALS: BP 109/67
[2021-08-25] MEDS: ESTRADIOL 1 MG TABLET PO SCH (08:10)
[2021-08-25] MEDS: ETHYL ALCOHOL 62% ANTISEPTIC NASAL SANITIZER 0.6 ML AMPUL NASAL SCH ×2 (09:00→21:00)
[2021-08-25 11:50] LABS: C-REACTIVE PROTEIN QUANT 5.54 mg/dL (0.00-0.30)
[2021-08-25 21:39] VITALS: BP 106/50
[2021-08-26] MEDS: VANCOMYCIN HCL 1.25 GM in DEXTROSE 5%-WATER 250 ML IV SCH ×2 (00:02→09:03)
[2021-08-26] MEDS: DIAZEPAM 5 MG TABLET PO PRN ×2 (01:39→09:02)
[2021-08-26] MEDS: OxyCODONE HCL/ACETAMINOPHEN 10-325 MG TABLET PO PRN ×2 (01:39→09:04)
[2021-08-26] MEDS: HEPARIN SODIUM,PORCINE 5,000 UNITS/ML VIAL SQ SCH ×3 (08:00→09:00)
[2021-08-26 08:51] LABS: ANION GAP 10 mmol/L (8-16); CARBON DIOXIDE 28 mmol/L (22-29); CHLORIDE 100 mmol/L (98-107); CREATININE 0.57 mg/dL (0.60-1.30); GLUCOSE,RANDOM 113 mg/dL (70-110); POTASSIUM 3.5 mmol/L (3.5-5.1); SODIUM SERUM 138 mmol/L (136-145); UREA NITROGEN, BLOOD 9 mg/dL (7-18); VANCOMYCIN,RANDOM 13.4 mcg/mL (25.0-50.0)
[2021-08-26 08:52] LABS: GLOMERULAR FILTR. RATE CALC > 60 mL/min (>60)
[2021-08-26] MEDS: DOCUSATE SODIUM 100 MG CAPSULE PO SCH (09:00)
[2021-08-26] MEDS: MULTIVITAMINS WITH MINERALS, THERAPEUTIC TABLET PO SCH (09:00)
[2021-08-26] MEDS: ETHYL ALCOHOL 62% ANTISEPTIC NASAL SANITIZER 0.6 ML AMPUL NASAL SCH (09:00)
[2021-08-26] MEDS: ESTRADIOL 1 MG TABLET PO SCH (09:00)
[2021-08-26] MEDS: FAMOTIDINE 20 MG TABLET PO SCH (09:00)
[2021-08-26 09:07] VITALS: BP 121/76
[2021-08-26] MEDS ORDERED: OxyCODONE HCL/ACETAMINOPHEN 10-325 MG TABLET PO ONE (09:30)
[2021-08-26] MEDS ORDERED: SULF-261 PO (14:50)
[2021-08-26] MEDS ORDERED: DOCU100C33 PO (14:53)
[2021-08-26] MEDS ORDERED: FAMO20 PO (14:53)
[2021-08-26] MEDS ORDERED: ESTR-95 PO (14:53)
[2021-08-26] MEDS ORDERED: DIAZ5TAB5 PO (14:55)
[2021-08-26] MEDS ORDERED: OXYC-490 PO (14:57)
[2021-08-26] MEDS ORDERED: QUET25TA PO (14:58)
== END 2021-08-26 16:00 | disposition home health service (06) | DRG 871 ==
LOC: EMS 14:24 → 6S 19:00 → UNDOADMIN 20:55 → 6S 20:55
PROVIDERS: ADMIT Internal Medicine; ATTEND Internal Medicine
PROC: 0JH63XZ Insertion of Tunneled Vascular Access Device into Chest Subcutaneous Tissue and Fascia, Percutaneous Approach (ICD-10-PCS; principal; 2021-08-22)
PROC: 02H633Z Insertion of Infusion Device into Right Atrium, Percutaneous Approach (ICD-10-PCS; 2021-08-22)
PROC: B548ZZA Ultrasonography of Superior Vena Cava, Guidance (ICD-10-PCS; 2021-08-22)
DX: A41.9 Sepsis, unspecified organism (principal); G92.8 Other toxic encephalopathy; M62.82 Rhabdomyolysis; E87.1 Hypo-osmolality and hyponatremia; F11.20 Opioid dependence, uncomplicated; L03.113 Cellulitis of right upper limb; N39.0 Urinary tract infection, site not specified; D64.9 Anemia, unspecified; F43.10 Post-traumatic stress disorder, unspecified; E66.9 Obesity, unspecified; E87.6 Hypokalemia; Z20.822 Contact with and (suspected) exposure to COVID-19; F60.89 Other specific personality disorders; F41.9 Anxiety disorder, unspecified; F17.210 Nicotine dependence, cigarettes, uncomplicated; F32.A Depression, unspecified; G89.4 Chronic pain syndrome; Z98.1 Arthrodesis status; Z85.038 Personal history of other malignant neoplasm of large intestine; Z79.899 Other long term (current) drug therapy; Z76.5 Malingerer [conscious simulation]; Z91.19 Patient's noncompliance with other medical treatment and regimen; Z88.5 Allergy status to narcotic agent; Z88.8 Allergy status to other drugs, medicaments and biological substances; Z91.041 Radiographic dye allergy status; Z90.49 Acquired absence of other specified parts of digestive tract; Z68.35 Body mass index [BMI] 35.0-35.9, adult
CPT/HCPCS: 36245; 36561; 70450; 71045; 72125; 72148; 73221; 76001; 76937; 80048; 80053; 80202; 81001; 81003; 82140; 82550; 82962; 83605; 83735; 84100; 84132; 84439; 84443; 84484; 84702; 85025; 85379; 85610; 86140; 87040; 87081; 87086; 93005; 93971; 97116; 97162; 97166; 97530; 99291; G0480; J1644; J2060; J2250; J2270; J2310; J2543; J3010; J3370; J3480; J3490; J7030; J7050; J7060; Q9967; 36415-L1; 36415-TC; U0003